=== PATIENT | female | born 1950 | race Caucasian/White ===

== ENCOUNTER → 2017-03-10 | Outpatient (CLI) | payer MEDICARE, BC ==
[~2017-03-10] MED LIST: CALTRATE 600 W-1 TAB PO; PRAVASTATIN SOD40 MG PO; PRILOSEC40 MG PO; PRINIVIL20 M1 PO; VITAMIN D2000 UNI1 PO
--- NOTE | ~2017-03-10 | CT2 ---
[facility] A Service of [facility] RADIOLOGY TEXT RESULTS PATIENT: STACY ANTONIO LOCATION: [facility] : 50 UNIT #: [id number] AGE: [address]: Wilmer Carlson MD SEX: F ORDER DR: [id number] [facility] [address] [facility] [place], [place] [address] [id number] O MR#: [id number] Acc #: [id number] NAME: STACY ANTONIO : 1950 SEX: F STUDY DATE/TIME: 03/10/2017 14:36 UNIT: [facility] ROOM: STUDY DESCRIPTION: CT Abd and Pelv W Cont Attending Physician: Wilmer Carlson M.D. Referring Physician: Wilmer Carlson M.D. Ordering Physician: Valente Carlson M.D. Primary Care Physician: Wilmer Carlson M.D. MEDICAL IMAGING REPORT This report is preliminary unless electronic signature is present EXAM CT abdomen and pelvis with contrast 03/10/[address] dated 07/19/2011. TECHNIQUE Axial CT abdomen and pelvis with oral and IV contrast with multiplanar reformats. This CT exam was performed with one or more of the following radiation dose reduction techniques: automatic exposure control, adjustment of mA and/or kV according to patient size, and iterative reconstruction. HISTORY Clinical history is right lower quadrant abdominal pain for 2 months. Pain is described as sharp. FINDINGS The lung bases are unremarkable. ABDOMEN: The liver and gallbladder and spleen and pancreas are normal. The kidneys and adrenal glands are normal. The aorta is normal in caliber. There is no bowel obstruction. There is no intraabdominal mass or inflammatory change or abnormal fluid collection. PELVIS: The patient has had appendectomy. There is no pelvic mass or inflammatory change or abnormal fluid collection. There is no hernia or bowel obstruction. There is mild spinal degenerative change but no acute bony abnormality. [facility] A Service of [facility] RADIOLOGY TEXT RESULTS PATIENT: STACY ANTONIO LOCATION: [facility] #: [id number] : 50 UNIT #: [id number] AGE: [address]: Wilmer Carlson MD SEX: F ORDER DR: IMPRESSION No acute abnormality. No renal or bowel or biliary obstruction. No mass or inflammatory change or adenopathy. There is a tiny fat-containing umbilical hernia but the exam is otherwise remarkable only for mild spinal degenerative change. Dictated by... Nicholas Painter M.D. THIS IS AN ELECTRONICALLY VERIFIED REPORT Nicholas Painter M.D. at 03/12/2017 1:23 PM TEV/pcl TD: 03/10/2017 21:40 JOB #: [id number] MEDICAL IMAGING REPORT Page 1 of 1 COPY
[2017-03-10 14:10] LABS: POC - CREATININE 0.69 mg/dL (0.44-1.03); POC - GFR >60.0 mL/min (>60)
== END | disposition home or self-care (01) ==
LOC: CCAT 03-05 16:40
PROVIDERS: Internal Medicine
DX: R10.31 Right lower quadrant pain (principal); K42.9 Umbilical hernia without obstruction or gangrene
CPT/HCPCS: 74177; 82565; Q9967